=== PATIENT | male | born 1990 | race American Indian/Alaskan Native ===

== ENCOUNTER 2021-01-01 15:27 | Outpatient (CLI) | payer BC ==
[2021-01-01 16:00] LABS: Basophils % (Auto) 0.6 % (0.0-1.8); Eosinophils # (Auto) 0.1 K/mm3 (0.0-0.4); Eosinophils % (Auto) 1.1 % (0.0-4.3); Hematocrit 43.9 % (35.5-45.6); Hemoglobin 14.4 gm/dl (11.8-15.2); Lymphocytes % (Auto) 38.5 % (13.4-35.0); Mean Corpuscular HGB Conc 33 % (32-34); Mean Corpuscular Volume 85 fl (84-94); Monocytes # (Auto) 0.5 K/mm3 (0.0-0.8); Monocytes % (Auto) 6.1 % (0.0-7.3); Platelet Count 272 K/mm3 (140-440); Red Blood Count 5.19 M/mm3 (3.65-5.03); Red Cell Distribution Width 14.6 % (13.2-15.2)
[2021-01-01 16:34] LABS: Alanine Aminotransferase 21 units/L (7-56); Albumin 4.6 g/dL (3.9-5); BUN/Creatinine Ratio 12; Blood Urea Nitrogen 12 mg/dL (9-20); Calcium 9.4 mg/dL (8.4-10.2); Chol/HDL Ratio 3.98 %; HDL Cholesterol 50 mg/dL (40-59); Hemolysis Index 7; LDL Cholesterol,Direct 146 mg/dL (50-130)
[2021-01-05 12:31] LABS: Vitamin D, 25-OH, D2 <4 ng/mL
== END 2021-01-01 15:28 | disposition home or self-care (01) ==
LOC: LAB 15:27
PROVIDERS: ATTEND Internal Medicine
DX: Z00.00 Encounter for general adult medical examination without abnormal findings (principal); E11.9 Type 2 diabetes mellitus without complications; E78.5 Hyperlipidemia, unspecified; K21.9 Gastro-esophageal reflux disease without esophagitis; E55.9 Vitamin D deficiency, unspecified; Z13.29 Encounter for screening for other suspected endocrine disorder
CPT/HCPCS: 36415; 80053; 80061; 82306; 83036; 84443; 85025

== ENCOUNTER 2021-03-29 17:33 | Emergency (ER) | payer BC, OTHER ==
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
[2021-03-29 20:48] VITALS: BP 179/113
[2021-03-29] MEDS ORDERED: IBUPROFEN 800 MG TAB PO STA (22:04)
[2021-03-29] MEDS ORDERED: ACETAMINOPHEN 500 MG TAB PO STA (22:04)
== END 2021-03-29 22:30 | disposition home or self-care (01) ==
LOC: ED 17:33
DX: M54.5 Low back pain (principal); M54.2 Cervicalgia; Z79.899 Other long term (current) drug therapy; V49.49XA Driver injured in collision with other motor vehicles in traffic accident, initial encounter; Y92.410 Unspecified street and highway as the place of occurrence of the external cause; Y93.89 Activity, other specified; Y99.8 Other external cause status

== ENCOUNTER 2022-03-06 14:14 | Outpatient (CLI) | payer OTHER ==
--- NOTE | 2022-03-06 16:09 | Cat Scan Report ---
CT ABDOMEN AND PELVIS WITHOUT AND WITH INTRAVENOUS CONTRAST INDICATION / CLINICAL INFORMATION: POSSIBLE ADRENAL CAUSE OF HYPERTENSION. TECHNIQUE: 100 cc Omnipaque [address] scans at this location are performed using CT d ose reduction for ALARA by means of automated exposure control. COMPARISON: None available. FINDINGS: ABDOMEN: Noncontrast images demonstrate no evidence of an adrenal nodule. No abnormal calcification i s present. Post contrast images demonstrate symmetric renal excretion bilaterally. The kidneys are no rmal in size without evidence of a mass, calculus or hydronephrosis. The liver, spleen, gallbladder, bile ducts, pancreas and adrenal glands are normal. There is no evide nce of bowel obstruction, wall thickening or free air. No adenopathy is present. There is no evidence of a retroperitoneal mass. No acute vascular abnormality is seen. The lung bases are clear. PELVIS: The distal ureters, urinary bladder, prostate gland and seminal vesicles are normal. A normal appendix is present and there is no evidence of diverticulitis. No abnormal mass or fluid collection is seen. I do not identify a hernia. There is unilateral spondylolysis at L5 with associated facet hypertrophy but no evidence of spondylo listhesis. IMPRESSION: 1. The adrenal glands are normal 2. Incidental unilateral spondylolysis at L5 with associated spondylosis. Signer Name: Darryl Wharton MD Signed: 03/06/2022 4:03 PM Workstation Name: [id number]
== END 2022-03-06 14:15 | disposition home or self-care (01) ==
LOC: CT 14:14
PROVIDERS: ATTEND Internal Medicine Cardiovascular Disease
DX: I10 Essential (primary) hypertension (principal); M47.816 Spondylosis without myelopathy or radiculopathy, lumbar region
CPT/HCPCS: 74178; Q9967